=== PATIENT | male | born 1935 | race Caucasian/White ===

== ENCOUNTER 2022-09-20 07:35 | Outpatient (CLI) | payer MEDICARE, OTHER, SELFPAY ==
[2022-09-20 08:40] LABS: Hematocrit 47.3 % (42.0-52.0); Hemoglobin 15.1 g/dL (14.0-18.0); Mean Corpuscular HGB Conc 31.9 g/dl (32-36); Mean Corpuscular Hemoglobin 32.8 pg (26-34); Mean Corpuscular Volume 102.6 fl (80-100); Mean Platelet Volume 9.1 fl (7.4-10.4); Platelet Count Result 314 k/mm3 (150-375); Red Blood Count 4.61 M/mm3 (4.6-6.20); Red Cell Distribution Width 13.6 % (11.5-14.5); White Blood Count 8.7 K/mm3 (4.5-10.0)
[2022-09-20 08:43] LABS: Appearance Urine Clear (Clear); Bilirubin Urine Negative (Negative); Blood Urine Negative (Negative); Color Urine Yellow (Yellow); Glucose Urine UA 2+ mg/dL (Negative); Ketones Urine Trace mg/dL (Negative); Leukocyte Esterase Ur Negative LEU/UL (Negative); Nitrate Urine Negative (Negative); Protein Urine Negative (Negative)
[2022-09-20 08:50] LABS: Anion Gap 5 mmol/L (8-16); Blood Urea Nitrogen 35 mg/dL (9-20); Calcium 9.4 mg/dL (8.4-10.2); Carbon Dioxide 26 mmol/L (22-30); Chloride 106 mmol/L (98-107); Estimated Glomerular Filt Rate > 60; Glucose 88 mg/dL (65-110); Potassium 5.1 mmol/L (3.4-5.0); Sodium 137 mmol/L (137-145)
[2022-09-20 08:58] LABS: Hemoglobin A1C 5.3 % (<5.7)
[2022-09-20 09:04] LABS: Add Urine Microscopic? NO
[2022-09-20 09:08] LABS: INR 1.1; Prothrombin Time 14.4 Seconds (11.1-14.7)
[2022-09-20 09:09] LABS: Partial Thromboplastin Time 33.5 SECONDS (22.3-36.8)
== END 2022-09-20 07:36 | disposition home or self-care (01) ==
PROVIDERS: PCP Family Medicine; Visit Provider Neurological Surgery
DX: M54.2 Cervicalgia (principal); G89.29 Other chronic pain
CPT/HCPCS: 36415; 80048; 81003; 83036; 85027; 85610; 85730

== ENCOUNTER 2022-09-26 00:19 | Day surgery (SDC) | payer MEDICARE, OTHER, SELFPAY ==
--- NOTE | 2022-07-08 09:07 | PC.NURSE ---
WHILE INTERVIEWING PATIENT & (FINISHED ALLERGIES, MEDS & PHARMACY), THEY REALIZED THAT I WAS INTERVIEWING PATIENT FOR PAIN STIMULATOR LEAD & GENERATOR REPLACEMENT AND STATE THAT HIS HERNIA IS PAINFUL AND NEEDS TO BE SURGICALLY REPAIRED PRIOR TO PAIN STIMULATOR SURGERY. HE PLANS TO HAVE HERNIA SURGERY IN [place]. CALL OUT TO DR HEIN'S OFFICE TO CLARIFY. PT'S CALLING DR JONES([place]) TO CLARIFY WITH HIM. ASSESSMENT/INSTRUCTIONS NOT COMPLETED.
[2022-09-19 10:55] VITALS: BMI 23.3
--- NOTE | 2022-09-19 11:22 | PC.NURSE ---
PRE-OP INSTRUCTIONS, PLEASE READ CAREFULLY Report to the Outpatient Waiting Room, entrance under the green pavilion located off [facility], at time _0600_ on date _09/26/22_. Planned Procedure Time: _0800_. PACK A SMALL OVERNIGHT BAG AND LEAVE IN THE CAR Time changes happen often and if your time is changed the preop area will call you the afternoon before. - You and your visitor will be asked to self-screen and do not enter if you have any COVID symptoms. - A mask is optional within the hospital at this time. -VISITING HOURS 8AM-8PM Patients may have clear liquids (water, carbonated beverages, clear teas, apple juice) until 3 hours prior to surgery (0500 AM) with a maximum of 20 ounces. - No food from midnight until time of surgery Take the following medications with a SIP of water the morning of surgery: _METOPROLOL & TYLENOL IF NEEDED_ DO NOT STOP ANY OF YOUR OTHER PRESCRIPTION MEDICATIONS PRIOR TO SURGERY ?EXCEPT THE FOLLOWING Medications to discontinue per DR. CROWDER - _ELIQUIS & PRESERVISION, Date to take last dose_09/19/22 (PER PT'S SPOUSE)_ Please no make-up, nail romanian, hairspray, perfume, deodorant, or body powder the day of surgery. No jewelry (including any body piercings) or valuables the day of surgery, leave them at home. Please take a shower or bath the night before, or the morning of, surgery with an antibacterial soap. Wear comfortable, loose fitting clothing. - Jewelry must be removed prior to entering the operating room. Rings and piercings that are not removed may be cut off. - The hospital will not accept responsibility for valuables. - Please leave all valuables, including medications, at home the day of surgery. If you are going home after surgery, a licensed drivers' cash clerk must drive you home. - NO public transportation without another adult if you receive anesthesia. - We recommend that an adult stay with you for 24 hours following discharge. - We also recommend that you do not drive, make important decision, drink alcoholic beverages, or take any drugs that were not prescribed by your health care provider for at least 24 hours after your discharge time. Follow any additional instructions given to you from your surgeon. If you or anyone in your household have experienced Covid symptoms in the past week, please notify your surgeon or the nurse liaison at the phone number below for possible testing. Telephone instructions given to _PATIENT & SPOUSE (NAEL)_and asked if any additional questions and then verbalized understanding. Patient advised to call surgeon office or pre surgery nurse liaison [phone] if any additional questions.
--- NOTE | 2022-09-25 14:26 | WPDANESEPPF ---
Anes - Initial Pre Proc Eval Procedure: Operation Date: 09/26/22 08:00 Proposed Procedures p Placement of Cervical Dorsal Column Stimulator Lead and Generator - Jerrod Tanner MD Date/Time: 09/25/22 14:26 Surgeon: Jerrod Tanner MD Pre Op Diagnosis: chronic neck and arm pain Patient Data Age: 87 Gender: M Height: 1.73 m Weight: 69.54 kg Allergies Allergy/AdvReac Type Severity Reaction Status Date / Time meperidine Allergy Mild HIVES, HOT Verified 09/26/22 07:18 FEELING/FLUSHED oxycodone Allergy Mild HIVES, Verified 09/26/22 07:18 FLUSHED FACE codeine Allergy Unknown HIVES, Verified 09/26/22 07:18 FLUSHED FACE cyclobenzaprine Allergy Unknown DELIRIUM Verified 09/26/22 07:18 fentanyl AdvReac Nausea and Verified 09/26/22 07:18 Vomiting Home Medications Medication Instructions Recorded Confirmed Type acetaminophen 500 mg tablet 1,000 mg PO Q6H PRN Pain 06/03/22 09/26/22 History (Tylenol Extra Strength) apixaban 5 mg tablet (Eliquis) 5 mg PO BID 06/03/22 09/26/22 History carisoprodol 350 mg tablet (Soma) 350 mg PO HS PRN Insomnia 06/03/22 09/26/22 History colchicine 0.6 mg capsule 0.6 mg PO DAILY PRN GOUT 06/03/22 09/19/22 History empagliflozin 10 mg tablet 10 mg PO QAM 06/03/22 09/26/22 History (Jardiance) finasteride 5 mg tablet (Proscar) 5 mg PO HS 06/03/22 09/26/22 History guaifenesin 600 mg tablet, 600 mg PO Q12H PRN Congestion 06/03/22 09/26/22 History extended release 12 hr (Mucinex) metoprolol tartrate 50 mg tablet 50 mg PO BID 06/03/22 09/26/22 History (Lopressor) sacubitril 24 mg-valsartan 26 mg 1 tablet PO BID 06/03/22 09/26/22 History tablet (Entresto) tamsulosin 0.4 mg capsule (Flomax) 0.4 mg PO DAILY 06/03/22 09/26/22 History simethicone 125 mg capsule (Gas-X 125 mg PO TID PRN Gastrointestinal 07/08/22 09/26/22 History Extra Strength) Spasms Or Cramping vit C 250 mg-vit E 90 mg-zinc 40 1 tablet PO BID 07/08/22 09/26/22 History mg-copper 1 [id number] capsule (PreserVision AREDS-2) Patient hx anesthesia problems: none Family hx anesthesia problems: none Results Review: All pre-operative results and documents have been reviewed as part of the pre-operative evaluation. [facility] Past Medical History Medical History (Updated 06/03/22 @ 11:07 by Joanie Verdin) Arthritis Cervical vertebral fusion Congestive heart failure Coronary artery disease Skin cancer Family History Family History (Updated 05/01/16 @ 08:21 by DOCTOR UNKNOWN) Father Acute myocardial infarction Social History Social History Smoking status: Never smoker Second hand tobacco smoke exposure: No Alcohol intake: never Substance use: never Substance use type: does not use Living arrangements: with family Spiritual care concerns: No Anes - Eval Final PreProcedure Day of Procedure 09/25/22 14:26 Patient weight: normal Heart: regular rate and rhythm Lungs: clear to auscultation Airway: Mallampati scale class II Neurological: alert and oriented Last oral intake: >/= 8 hours ASA classification: III Emergent: no Anesthetic plan: proceed Anesthesia type and monitoring: general ETT and standard monitoring Results Review: All pre-operative results and documents have been reviewed as part of the pre-operative evaluation. Informed Consent: The patient's anesthetic plan and its attendant risks and benefits were discussed with the patient/family/POA. Questions were solicited and answers provided to the satisfaction of the patient/family/POA.
[2022-09-26] VITALS (14 sets, daily range): BP systolic 92–112; BP diastolic 44–98; PULSE 52–105; RESP 12–20; TEMP 35.9–36.4; O2SAT 97–100
--- NOTE | ~2022-09-26 | XR_ITS ---
EXAMINATION: XR fluoroscopy no charge DATE: 09/26/2022 10:06 INDICATION: Chronic neck and arm pain. TECHNIQUE: 1 intraoperative fluoroscopic view of the cervical spine was obtained. I was not present. Fluoroscopy exposure time was 5 seconds. COMPARISON: None. FINDINGS: There are changes of posterior fusion procedure in cervical spine. Electrodes overlie C7-T1 . IMPRESSION: 1. Electrodes overlie C7-T1. 2. Posterior fusion procedure in cervical spine. Reviewed, dictated and finalized at location A.
[2022-09-26] MEDS: LACTATED RINGERS 1,000 ML 30 ML IV CONT (07:10)
[2022-09-26 07:14] LABS: Glucose Point of Care 84 mg/dl (65-105)
--- NOTE | 2022-09-26 07:48 | PM.IMHP ---
H&P: HPI History of Present Illness Date/Time: 09/26/22 07:48 Chief Complaint: Neck and arm pain Narrative: Nayan is an 87-year-old gentleman with neck pain that responded neural column stimulation. He has also had operations done on his neck resulting in fusion at multiple levels. He presents now for permanent placement of a cervical dorsal column stimulator. He has not changed appreciably since we last saw him. He does not have specific muscle group weakness or dermatomal numbness. He is not having bowel or bladder difficulty. Review of Systems Review of Systems: Patient denies shortness of breath, cough, fever, chills, nausea, vomiting, weight loss, weight gain, chest pain, dysuria. He has neck and arm pain as above. His review of systems is otherwise negative on 12 systems except as noted elsewhere. [facility] Past Medical History Medical History Arthritis Cervical vertebral fusion Congestive heart failure Coronary artery disease Skin cancer Family History Family History Father Acute myocardial infarction Social History Social History Smoking status: Never smoker Second hand tobacco smoke exposure: No Alcohol intake: never Substance use: never Substance use type: does not use Living arrangements: with family Spiritual care concerns: No Meds Home Medications and Allergies Home Medications Medication Instructions Recorded Confirmed Type acetaminophen 500 mg tablet 1,000 mg PO Q6H PRN Pain 06/03/22 09/26/22 History (Tylenol Extra Strength) apixaban 5 mg tablet (Eliquis) 5 mg PO BID 06/03/22 09/26/22 History carisoprodol 350 mg tablet (Soma) 350 mg PO HS PRN Insomnia 06/03/22 09/26/22 History colchicine 0.6 mg capsule 0.6 mg PO DAILY PRN GOUT 06/03/22 09/19/22 History empagliflozin 10 mg tablet 10 mg PO QAM 06/03/22 09/26/22 History (Jardiance) finasteride 5 mg tablet (Proscar) 5 mg PO HS 06/03/22 09/26/22 History guaifenesin 600 mg tablet, 600 mg PO Q12H PRN Congestion 06/03/22 09/26/22 History extended release 12 hr (Mucinex) metoprolol tartrate 50 mg tablet 50 mg PO BID 06/03/22 09/26/22 History (Lopressor) sacubitril 24 mg-valsartan 26 mg 1 tablet PO BID 06/03/22 09/26/22 History tablet (Entresto) tamsulosin 0.4 mg capsule (Flomax) 0.4 mg PO DAILY 06/03/22 09/26/22 History simethicone 125 mg capsule (Gas-X 125 mg PO TID PRN Gastrointestinal 07/08/22 09/26/22 History Extra Strength) Spasms Or Cramping vit C 250 mg-vit E 90 mg-zinc 40 1 tablet PO BID 07/08/22 09/26/22 History mg-copper 1 [id number]-kjktvy capsule (PreserVision AREDS-2) spironolactone 25 mg tablet 25 mg PO DAILY 09/26/22 09/26/22 History vitamin B complex (B 1,000 tablet PO DAILY 09/26/22 09/26/22 History Complex-Vitamin B12 tablet) Allergies Allergy/AdvReac Type Severity Reaction Status Date / Time meperidine Allergy Mild HIVES, HOT Verified 09/26/22 07:18 FEELING/FLUSHED oxycodone Allergy Mild HIVES, Verified 09/26/22 07:18 FLUSHED FACE codeine Allergy Unknown HIVES, Verified 09/26/22 07:18 FLUSHED FACE cyclobenzaprine Allergy Unknown DELIRIUM Verified 09/26/22 07:18 fentanyl AdvReac Nausea and Verified 09/26/22 07:18 Vomiting Vital Signs Vital Signs - 24 hr 09/26/22 07:14 Temperature 97.5 F L Pulse Rate 74 Respiratory Rate 16 Blood Pressure 112/98 H Pulse Oximetry 100 Oxygen Delivery Room Air Exam Narrative: Strength is 5 in 5 in all muscle groups of the bilateral upper extremities. Sensation is intact light touch throughout the upper extremities. Breathing is nonlabored Regular rate and rhythm Assessment and Plan Assessment and plan (1) Status post cervical spinal fusion: Code(s): Z98.1 - Arthrodesis status Status: Acute (2) Chron
--- NOTE | 2022-09-26 07:53 | WPDHPUPDATE1 ---
History and Physical Update Update Date/Time: 09/26/22 07:53 History and Physical has been reviewed, including an updated exam of the patient. There are NO changes in the patient's condition. Risks, benefits, and alternatives have been discussed and questions answered. Patient agrees to proceed with procedure.
[2022-09-26] MEDS: ceFAZolin 2 GM/D5W 50 ML 2 GM/50 ML BAG IVPB (07:58)
[2022-09-26] MEDS: LIDO 1%/EPINEPHRINE 1:100,000 20 ML VIAL 10 ML INFILTRATE (08:51)
[2022-09-26] MEDS: VANCOMYCIN HCL 1,000 MG VIAL 500 MG TOPICAL (08:52)
[2022-09-26 10:59] LABS: Glucose Point of Care 112 mg/dl (65-105)
--- NOTE | 2022-09-26 11:00 | W.PM.PROC2 ---
Procedure Note - Detailed Date of Procedure 09/26/22 Pre-op Diagnosis chronic neck and arm pain Post-op Diagnosis Same Procedure Performed Placement of dorsal column stimulator lead and generator C7-T1 Surgeon Jerrod Tanner MD Anesthesia General Description of Procedure There were no immediate complications this operation. All counts reported correct in the case. Blood loss was 50 cc. The patient was neurologically at his baseline postoperatively. The patient was brought to the operating room in the supine position, was sedated, intubated and placed under general anesthesia in routine fashion. Sed was placed in Tucker head of physics. He was then turned into the prone position on gel rolls and his head attached to the bed frame using the Tucker. There of operation on the back of his neck and in the left flank were examined, marked for incision, prepped and draped in routine sterile fashion. Incision was marked over the C7 and T1 spinous processes in the midline. Was also marked transversely in the left flank. These areas were injected with 0.5% lidocaine with [id number] epinephrine. Intravenous antibiotics given prior to incision. Incision was made with a 10 blade scalpel down to the cervical fashion into the subcutaneous tissues. A pocket was created 1 cm deep in the tissues in the left flank using the finger and Metzenbaum scissors. Bleeding was stopped with bipolar cautery. At the cervical thoracic incision a subperiosteal dissection of the muscle soft tissue away from spinous process and lamina at C7-T1 was performed with a subperiosteal elevator and Bovie cautery. A verifying x-rays obtained to verify the level of operation. Laminectomies were performed to below T1 below C7. This was done with a Leksell rongeur cough, Kerrison punches, curved curettes and a Midas Jadon drill. Short wide area the dura was uncovered. Stenosis in the epidural space was removed using Kerrison punches and curved curettes. A plane was created in the dorsal epidural space and the lead was placed into the dorsal epidural space until was confirmed to be behind C7 vertebral body of the midline. A 3-0 Prolene suture was used to anchor the base of the lead to prevent it from coming out of the epidural space. A subcutaneous Passer was used to pass the lead from the cervical thoracic incision to flank incision. Skin incision was necessary below the scapula on the left. The lead wires were placed into the generator and secured in position using the small screwdriver for that purpose. Impedance testing was carried out to confirm good, activity which was confirmed. The generator was then placed in the pocket with excess were occult up underneath it and with vancomycin impregnated pellets after copious irrigation with bacitracin irrigation at both incisions. The rest the pellets were spread above and below the fascia at the cervical thoracic incision. This was after all bleeding was stopped with bipolar cautery and the wound was copiously irrigated. The wounds were closed with 2-0 Vicryl interrupted sutures in the cervical thoracic fascia and Aubrey's layer. Both incisions were closed with 3-0 Vicryl buried interrupted sutures in the dermis and a running 4-0 Monocryl subcuticular stitch in the skin over dressed with Dermabond. The skip incision was likewise closed with the dermal stitch and subcuticular stitch and closed with Dermabond. The patient was loud wake up in the operating room was taken to the recovery room in stable condition. There were no immediate complications of this operation. All counts were reported correct in the case. Blood loss was 50 cc. The patient was neurologically at his baseline postoperatively. Implants Dorsal column stimulator lead and generator, [place] Estimated Blood Loss 50 IV Fluids 1,000 Complications None Condition Stable Disposition PACU [facility] Billing Surgery - Charge Forward: Surgery Billing
[2022-09-26] MEDS: HYDROmorphone HCL INJ (*CRX) 1 MG/ML SYR 0.25 MG IV PUSH ×3 (11:17→11:40)
[2022-09-26] MEDS: KCL 20 MEQ/D5/0.45% SOD CHL 1,000 ML 100 ML IV CONT (12:28)
--- NOTE | 2022-09-26 12:36 | ADMGEN ---
This patient, Nayan Lopez, was admitted to [facility] Surg Room 331-01. Patient/family oriented to hospital policies and general routines including ID bracelet, bed and alarms, visiting hours, pain management, procedures, bathroom and other care routines, personal items, smoking policy, room service/diet, and visiting hours. Information on how to activate the Rapid Response Team has been discussed. Patient/Family are encouraged to report perceived risks to care and to ask questions if they do not understand what they are told or what they should do.
[2022-09-26] MEDS: METOPROLOL TARTRATE 50 MG TAB PO (16:29)
[2022-09-26] MEDS: SACUBITRIL/VALSARTAN 24-26 MG TABLET 1 TAB PO (16:29)
[2022-09-26] MEDS: OPTI-GEN TAB 1 TABLET PO (16:29)
[2022-09-26] MEDS: ACETAMINOPHEN 500 MG TABLET 1000 MG PO (17:10)
[2022-09-26 17:24] LABS: Glucose Point of Care 217 mg/dl (65-105)
[2022-09-26 20:38] LABS: Glucose Point of Care 233 mg/dl (65-105)
[2022-09-26] MEDS: DOCUSATE SODIUM 100 MG CAPSULE PO (20:45)
[2022-09-26] MEDS: FINASTERIDE 5 MG TABLET PO (20:46)
[2022-09-27 00:05] VITALS: BP 90/54; PULSE 67; RESP 16; TEMP 36.4; O2SAT 98
[2022-09-27] MEDS: ACETAMINOPHEN 500 MG TABLET 1000 MG PO ×3 (00:23→15:32)
[2022-09-27] MEDS: KCL 20 MEQ/D5/0.45% SOD CHL 1,000 ML 30 ML IV CONT (00:24)
--- NOTE | 2022-09-27 00:29 | PC.NURSE ---
Told in report pt was tolerating diet. Pt had a snack a while ago and tolerated it. New bag of fluids started at 30 mls/hr per written order
[2022-09-27 04:00] VITALS: BP 90/55; PULSE 70; RESP 16; TEMP 36.3; O2SAT 98
[2022-09-27 08:38] LABS: Glucose Point of Care 106 mg/dl (65-105)
[2022-09-27] MEDS: SENNA/DOCUSATE SODIUM TABLET 1 TAB PO (09:15)
[2022-09-27] MEDS: VITAMIN B COMPLEX CAPSULE 1 CAP PO (09:15)
[2022-09-27] MEDS: SACUBITRIL/VALSARTAN 24-26 MG TABLET 1 TAB PO (09:15)
[2022-09-27] MEDS: OPTI-GEN TAB 1 TABLET PO (09:15)
[2022-09-27] MEDS: guaiFENesin 12 HR 600 MG TABCR PO (09:15)
[2022-09-27] MEDS: SIMETHICONE 125 MG CHEW TAB PO (09:15)
[2022-09-27] MEDS: SPIRONOLACTONE 25 MG TABLET PO (09:15)
[2022-09-27] MEDS: EMPAGLIFLOZIN 10 MG TABLET PO (09:15)
[2022-09-27] MEDS: TAMSULOSIN HCL 0.4 MG CAPSULE PO (09:16)
[2022-09-27 09:17] VITALS: PULSE 72
[2022-09-27] MEDS: METOPROLOL TARTRATE 50 MG TAB PO (09:17)
[2022-09-27 12:17] LABS: Glucose Point of Care 107 mg/dl (65-105)
[2022-09-27 14:30] VITALS: BP 102/68; PULSE 86; RESP 16; TEMP 36.4; O2SAT 100
[2022-09-27 17:26] LABS: Glucose Point of Care 93 mg/dl (65-105)
--- NOTE | 2022-09-27 18:36 | PC.NURSE ---
Pt discharged home with . Pt IV was removed tip intact. Pt tolerated well. Pt was eager to discharge. Pt reported pain at incision site. Pt was treated with tylenol. Pt participated and contributed in plan of care. Pt was monitored for any changes in status while here.
== END 2022-09-27 17:40 | disposition home or self-care (01) ==
LOC: ANHSURGERY 05:51 → ANH3MEDSUR 09-27 13:30
PROVIDERS: PCP Family Medicine; Visit Provider Neurological Surgery
PROC: (CPT 63685; principal; 2022-09-26 08:00)
DX: M54.2 Cervicalgia (principal); M79.603 Pain in arm, unspecified; G89.29 Other chronic pain; Z98.1 Arthrodesis status; I50.9 Heart failure, unspecified; I25.10 Atherosclerotic heart disease of native coronary artery without angina pectoris; Z79.01 Long term (current) use of anticoagulants; Z79.84 Long term (current) use of oral hypoglycemic drugs
CPT/HCPCS: 63685; 63655; 82948; 97116; 97161; 97165; 97530; 97535; 99199; A9270; C1778; J0690; J1100; J1170; J2250; J2371; J2405; J2704; J3370; J3480; J7120